=== PATIENT | male | born 1960 | race Caucasian/White ===

== ENCOUNTER 2019-11-16 20:51 | Emergency (ER) | payer BC ==
[2019-11-16] MEDS ORDERED: Bacitracin Oint 1 GM U/D Packet TOP ONE (21:06)
--- NOTE | 2019-11-16 21:07 | EDM.PDOC ---
ED HPI GENERAL MEDICAL PROBLEM - General Chief Complaint: Laceration Stated Complaint: CUT RINGER FINGER KNUCKLE Time Seen by Provider: 11/16/19 21:00 Source of Information: Reports: Patient History Limitations: Reports: No Limitations - History of Present Illness INITIAL COMMENTS - FREE TEXT/NARRATIVE: 59-year-old male with a laceration of his right hand. He struck the PIP knuckle of the ring finger on the ulnar side and is 1 cm laceration on the dorsal aspect of the finger. It opens when he bends his finger and tends to bleed but he has full range of motion and normal sensation. Onset: Sudden Location: Reports: Upper Extremity, Right Associated Symptoms: Reports: No Other Symptoms Right Finger-Ring Pain Score (Numeric/FACES): 1 - Related Data Allergies Allergy/AdvReac Type Severity Reaction Status Date / Time bee venom protein (honey bee) Allergy Hives Verified 11/16/19 21:02 Home Meds: Home Meds Doxycycline [Doxycycline Hyclate] 100 mg PO BID 11/16/19 [History] EPINEPHrine [Epipen 2-Jordan] 0.3 mg IM ASDIRECTED PRN 11/16/19 [History] Social & Family History - Tobacco Use Smoking Status *Q: Never Smoker - Caffeine Use Caffeine Use: Reports: Coffee - Recreational Drug Use Recreational Drug Use: No ED ROS GENERAL - Review of Systems Review Of Systems: See Below Constitutional: Denies: Fever, Chills HEENT: Reports: Other (He is on an antibiotic currently for a right eyelid stye which is healing) Respiratory: Reports: No Symptoms Cardiovascular: Reports: No Symptoms GI/Abdominal: Denies: Nausea, Vomiting Neurological: Reports: No Symptoms ED EXAM, SKIN/RASH Exam: See Below Exam Limited By: No Limitations General Appearance: Alert, No Apparent Distress Head: Atraumatic Respiratory/Chest: No Respiratory Distress Extremities: Other (The right hand is examined and reveals a 1 cm laceration on the dorsal aspect of the ring finger, ulnar side of the PIP joint.) Neurological: Alert, Oriented Psychiatric: Normal Affect, Normal Mood Course - Vital Signs Last Recorded V/S: Last Vital Signs Temp 98.3 F 11/16/19 21:04 Pulse 69 11/16/19 21:04 Resp 14 11/16/19 21:04 BP 135/74 11/16/19 21:04 Pulse Ox 95 11/16/19 21:04 - Orders/Labs/Meds Meds: Medications Discontinued Medications Generic Name Dose Route Start Last Admin Trade Name Sesar PRN Reason Stop Dose Admin Bacitracin 1 dose 11/16/19 21:06 11/16/19 21:15 Bacitracin Oint 1 Gm TOP 11/16/19 21:07 1 dose ONETIME ONE Administration Lidocaine HCl 5 ml 11/16/19 21:06 11/16/19 21:15 Xylocaine-Mpf 1% INJECT 11/16/19 21:07 5 ml ONETIME ONE Administration - Re-Assessments/Exams Free Text/Narrative Re-Assessment/Exam: 11/16/19 21:34 The area was anesthetized with 1% lidocaine, washed thoroughly with saline, and two 4-0 Ethilon sutures were used to close the wound. Topical bacitracin and a Band-Aid was applied, his tetanus is current. Sutures can be removed in 1 week. Departure - Departure Time of Disposition: 21:40 Disposition: Home, Self-Care 01 Clinical Impression: Laceration of finger Qualifiers: Encounter type: initial encounter Finger: ring finger Damage to nail status: without damage Foreign body presence: without foreign body Laterality: right Qualified Code(s): S61.214A - Laceration without foreign body of right ring finger without damage to nail, initial encounter - Discharge Information Instructions: Laceration Care, Adult Referrals: PCP,None [Primary Care Provider] - Forms: ED Department Discharge Care Plan Goals: Keep wound covered and clean while healing. Sutures can be removed in 7 days, increase activity as tolerated. Recheck sooner if concerns of infection or not healing satisfactorily. Sepsis Event Note (ED) - Evaluation Sepsis Screening Result: No Definite Risk - Focused Exam Vital Signs: Vital Signs Temp Pulse Resp BP Pulse Ox 11/16/19 21:04 98.3 F 69 14 135/74 95
== END 2019-11-16 21:40 | disposition home or self-care (01) ==
LOC: JP.ED 20:51
DX: S61.214A Laceration without foreign body of right ring finger without damage to nail, initial encounter (principal); Z91.030 Bee allergy status; W26.9XXA Contact with unspecified sharp object(s), initial encounter
CPT/HCPCS: 12001; 99282; J2001

== ENCOUNTER 2022-09-11 11:49 | Emergency (ER) | payer BC ==
[2022-09-11] MEDS ORDERED: cefTRIAXone 1 GM in Sodium Chloride 0.9% 50 ML IV ONE (14:46)
[2022-09-11] MEDS ORDERED: Bacitracin Oint 1 GM U/D Packet TOP ONE (15:04)
== END 2022-09-11 15:50 | disposition home or self-care (01) ==
LOC: JP.ED 11:49
DX: S50.852A Superficial foreign body of left forearm, initial encounter (principal); E78.00 Pure hypercholesterolemia, unspecified; Z91.030 Bee allergy status; Z79.899 Other long term (current) drug therapy; W45.8XXA Other foreign body or object entering through skin, initial encounter
CPT/HCPCS: 73090; 96365; 99283; J0696; J3490